=== PATIENT | female | born 1965 | race Hispanic/Latino ===

== ENCOUNTER 2018-04-13 17:28 | Emergency (ER) | payer SELFPAY ==
[2018-04-13 18:03] VITALS: BP 127/98
[2018-04-13] MEDS ORDERED: MOTRIN PO ONE (22:23)
--- NOTE | 2018-04-13 22:24 | Emergency Department Report ---
ED Lower Extremity HPI - General Chief Complaint: Extremity Problem,Nontraumatic Stated Complaint: LT KNEE PAIN Time Seen by Provider: 04/13/18 22:22 Source: patient Mode of arrival: Wheelchair Limitations: Physical Limitation - History of Present Illness Initial Comments: Patient is a 52-year-old white female who presents for left knee pain states unable bear weight for past month however patient ambulated into ED today left knee pain is 6/10 patient denies fall injury or trauma states initial episode about 6 months ago MD Complaint: knee injury, other (6 months acute on chronic pain) Injury: Knee: Left Type of Injury: unknown Place: home Severity: moderate Severity scale (0 -10): 5 Improves With: NSAID Worsens With: weight bearing, movement, palpation Context: other ([place]) Associated Symptoms: snap/pop sensation, able to partially bear weight. denies : swelling, numbness, tingling - Related Data Previous Rx's Medication Instructions Recorded Last Taken Type Cyclobenzaprine [Flexeril] 10 mg PO BID PRN #20 tablet 04/14/18 Unknown Rx Menthol/Camphor [[place] 1 applic TP TID PRN #1 tube 04/14/18 Unknown Rx Ointment] Naproxen 500 mg PO BID #30 tablet 04/14/18 Unknown Rx Allergies Allergy/AdvReac Type Severity Reaction Status Date / Time No Known Allergies Allergy Unverified 04/13/18 18:03 ED Review of Systems ROS: Stated complaint: LT KNEE PAIN Other details as noted in HPI Constitutional: denies: chills, fever Eyes: denies: eye pain, eye discharge, vision change ENT: denies: ear pain, throat pain Respiratory: denies: cough, shortness of breath, wheezing Cardiovascular: denies: chest pain, palpitations Endocrine: no symptoms reported Gastrointestinal: denies: abdominal pain, nausea, diarrhea Genitourinary: denies: urgency, dysuria, discharge Musculoskeletal: joint swelling, myalgia. denies: back pain, arthralgia Skin: denies: rash, lesions Neurological: denies: headache, weakness, paresthesias Psychiatric: denies: anxiety, depression Hematological/Lymphatic: denies: easy bleeding, easy bruising ED Past Medical Hx - Past Medical History Previous Medical History?: Yes - Surgical History Past Surgical History?: Yes Additional Surgical History: finger surgery - Social History Smoking Status: Current Every Day Smoker Substance Use Type: None - Medications Home Medications: Home Medications Medication Instructions Recorded Confirmed Last Taken Type Cyclobenzaprine [Flexeril] 10 mg PO BID PRN #20 tablet 04/14/18 Unknown Rx Menthol/Camphor [[place] 1 applic TP TID PRN #1 tube 04/14/18 Unknown Rx Ointment] Naproxen 500 mg PO BID #30 tablet 04/14/18 Unknown Rx ED Physical Exam - General Limitations: Physical Limitation General appearance: alert, in no apparent distress - Head Head exam: Present: atraumatic, normocephalic - Eye Eye exam: Present: normal appearance - ENT ENT exam: Present: mucous membranes moist - Neck Neck exam: Present: normal inspection - Respiratory Respiratory exam: Present: normal lung sounds bilaterally - Cardiovascular Cardiovascular Exam: Present: regular rate, normal rhythm. Absent: systolic murmur, diastolic murmur, rubs, gallop - GI/Abdominal GI/Abdominal exam: Present: soft, normal bowel sounds - Rectal Rectal exam: Present: deferred - Extremities Exam Extremities exam: Present: normal inspection, full ROM, normal capillary refill. Absent: tenderness, pedal edema, joint swelling, calf tenderness - Back Exam Back exam: Present: normal inspection - Neurological Exam Neurological exam: Present: alert, oriented X3 - Psychiatric Psychiatric exam: Present: normal affect, normal mood - Skin Skin exam: Present: warm, dry, intact, normal color. Absent: rash ED Course Vital Signs 04/13/18 17:59 Temperature 99.3 F Pulse Rate 91 H Respiratory 20 Rate Blood Pressure 127/98 O2 Sat by Pulse 100 Oximetry ED Lower Extremity MDM - Radiology Data Radiology results: report reviewed, image reviewed No fracture no soft tissue abnormality - Medical Decision Making X-ray negative for fracture no soft tissue abnormalities This is a knee strain plan Nitish wrap NSAIDs muscle relaxants knee exercises and follow with PCP in2 to 3 days patient verbalizes understanding and agreement was signed producing a home in stable condition at this time patient will test ambulatory with a steady Critical care attestation.: If time is entered above; I have spent that time in minutes in the direct care of this critically ill patient, excluding procedure time. ED Disposition Clinical Impression: Knee strain Qualifiers: Encounter type: initial encounter Laterality: left Qualified Code(s): S86.912A - Strain of unspecified muscle(s) and tendon(s) at lower leg level, left leg, initial encounter Disposition: TO HOME OR SELFCARE Is pt being admited?: No Does the pt Need Aspirin: No Condition: Good Instructions: Knee Pain (ED), Knee Exercises (GEN) Prescriptions: Cyclobenzaprine [Flexeril] 10 mg PO BID PRN #20 tablet PRN Reason: Muscle Spasm Menthol/Camphor [[place] Ointment] 1 applic TP TID PRN #1 tube PRN Reason: pain Naproxen 500 mg PO BID #30 tablet Referrals: [facility] [Outside] - 3-5 Days Forms: Work/School Release Form(ED) Time of Disposition: 00:41
--- NOTE | 2018-04-14 00:08 | XRay Report ---
FINAL REPORT EXAM: XR KNEE 3V LT HISTORY: left knee pain TECHNIQUE: Three views of the left knee were submitted. FINDINGS: All 3 compartments appear normal. There is no evidence of fracture or joint effusion. The soft tissues otherwise well maintained. IMPRESSION: Within normal limits.
== END 2018-04-14 00:57 | disposition home or self-care (01) ==
LOC: ED 17:28
DX: S86.912A Strain of unspecified muscle(s) and tendon(s) at lower leg level, left leg, initial encounter (principal); F17.200 Nicotine dependence, unspecified, uncomplicated; X58.XXXA Exposure to other specified factors, initial encounter; Y93.89 Activity, other specified; Y99.8 Other external cause status; Y92.009 Unspecified place in unspecified non-institutional (private) residence as the place of occurrence of the external cause
CPT/HCPCS: 99284

== ENCOUNTER 2018-04-14 10:57 | Emergency (ER) | payer SELFPAY ==
[2018-04-14 12:41] VITALS: BP 117/78
--- NOTE | 2018-04-14 15:11 | Emergency Department Report ---
Minor Respiratory - HPI Chief Complaint: Earache Stated Complaint: POSS EAR INFECTION Time Seen by Provider: 04/14/18 14:29 Duration: 3 Days (reports cough and wheezing 3 days and right ear drainage 1 day.) Pain Location: Ear (3 chest 10) Severity: mild (3/10) Minor Respiratory: Yes Able to Tolerate Fluids, Yes Ear Pain (3/10 and drainage from right ear), Yes Cough (and wheezing), No Rhinorrhea, No Sore Throat, No Sick Contacts, No Hemoptysis, No Chest Pain, No Shortness of Breath, No Fever Other History: This is a 52-year-old female here reports that she has drainage from her right ear last night. She just woke up this morning and she has greenish drainage. Pain is 3 of 10. Denies any trauma. Medication taken. Patient was here last night for knee pain and he gave her prescription for management and she is back today for right ear pain. Denies any nausea vomiting , fever or chills. Denies any chest pain or shortness of breath. Patient also complained of cough and wheeze then she says started 3 days ago and no medication taken. ED Review of Systems ROS: Stated complaint: POSS EAR INFECTION Other details as noted in HPI Constitutional: denies: chills, fever Eyes: denies: eye discharge, vision change ENT: ear pain (right ear pain and drainage). denies: throat pain, dental pain, hearing loss, congestion Respiratory: cough, wheezing. denies: shortness of breath, SOB with exertion, SOB at rest, stridor Cardiovascular: denies: chest pain, palpitations Gastrointestinal: denies: abdominal pain, nausea, diarrhea Musculoskeletal: denies: back pain, joint swelling, arthralgia Skin: denies: rash, lesions Neurological: denies: headache Psychiatric: anxiety ED Past Medical Hx - Past Medical History Previous Medical History?: Yes Hx Arthritis: Yes - Surgical History Past Surgical History?: Yes Additional Surgical History: finger surgery - Family History Family history: hypertension - Social History Smoking Status: Current Every Day Smoker Substance Use Type: None - Medications Home Medications: Home Medications Medication Instructions Recorded Confirmed Last Taken Type ALBUTEROL Inhaler [ProAir HFA 2 puff IH Q6H PRN #1 inhalation 04/14/18 Unknown Rx Inhaler] Amoxicillin/K Clav Tab [Augmentin 1 tab PO Q12HR #20 tab 04/14/18 Unknown Rx 875MG TAB] Cyclobenzaprine [Flexeril] 10 mg PO BID PRN #20 tablet 04/14/18 Unknown Rx Menthol/Camphor [[place] [employer] 1 applic TP TID PRN #1 tube 04/14/18 Unknown Rx Ointment] Naproxen 500 mg PO BID #30 tablet 04/14/18 Unknown Rx Neomy/Polymyx B/Hc (Otic) Soln 4 drops OTIC TID 1 Days #1 bottle 04/14/18 Unknown Rx [Cortisporin (Otic) Soln] predniSONE [Deltasone] 50 mg PO QDAY 5 Days #5 tab 04/14/18 Unknown Rx Minor Respiratory Exam - Exam General: Vital signs noted. No distress. Alert and acting appropriately. This is a 52-year-old female well-nourished well-developed in no acute distress. HEENT: Yes Moist Mucous Membranes, No Pharyngeal Erythema, No Pharyngeal Exudates, No Rhinorrhea, No Conjuctival Injection, No Frontal Tenderness, No Maxillary Tenderness Ear: Both EAC Pain (right EAC tender with scant drainage noted.), Both EAC Discharge, Neither TM Bulge (lateral TM congested without erythema), Neither TM Erythema Neck: Yes Supple (full range of motion), No Adenopathy Lungs: Yes Wheezes (scattered to bilateral upper lung bella), Yes Cough (dry cough), No Ronchi, No Stridor, No Labored Respirations, No Retractions, No Use of Accessory Muscles, No Other Abnormal Lung Sounds Heart: Yes Regular, No Murmur Abdomen: Yes Normal Bowel Sounds (in all quadrants), No Tenderness (nontender to palpate in all quadrants), No Peritoneal Signs Skin: No Rash, No Edema Neurologic: Alert and oriented, no deficits. Musculoskeletal: Unremarkable. ED Course Vital Signs 04/14/18 12:38 Temperature 97.9 F Pulse Rate 87 Respiratory 16 Rate Blood Pressure 117/78 O2 Sat by Pulse 96 Oximetry - Reevaluation(s) Reevaluation #1: 04/14/18 16:15 Patient given albuterol 5 mg nebulizer treatment and prednisone 60 mg by mouth for asthma. Up and reevaluation her lung sounds clear. ED Medical Decision Making - Medical Decision Making This is a 52-year-old female here reports that she is having right ear pain and drainage and also cough and cold symptoms and wheezing. I saw and examined patient and physical findings for scattered wheezes and upper lung field with dry cough. No use of accessory muscles. Patient with bilateral TM congested without any erythema and right EAC with scant drainage and tender to palpate the right tragus. Vital signs are stable she is afebrile. Patient was given albuterol 5 mg nebulizer and her wheezing had subsided and Deltasone 60 mg by mouth for her mild acute bronchitis. Patient will be started on Cortisporin Otic for right otitis externa and Augmentin for bronchitis. I explained diagnosis and treatment plan the patient was understanding. She says she is feeling better and she does not have a primary care so she will follow up at [facility] in 3 days or return to emergency room if her symptoms worsens. Prescription for Corticosporin Otic, albuterol inhaler, prednisone and Augmentin Critical care attestation.: If time is entered above; I have spent that time in minutes in the direct care of this critically ill patient, excluding procedure time. ED Disposition Clinical Impression: Bronchitis, Cough Otitis externa Qualifiers: Otitis externa type: unspecified type Chronicity: acute Laterality: right Qualified Code(s): H60.501 - Unspecified acute noninfective otitis externa, right ear Disposition: [id number] TO HOME OR SELFCARE Is pt being admited?: No Does the pt Need Aspirin: No Condition: Stable Instructions: Acute Bronchitis (ED), Chronic Bronchitis (ED) Additional Instructions: Please follow up with [facility] in 3 days. If he condition worsens return to the emergency room ANA Take medication as prescribed Prescriptions: ALBUTEROL Inhaler [ProAir HFA Inhaler] 2 puff IH Q6H PRN #1 inhalation PRN Reason: Shortness Of Breath Amoxicillin/K Clav Tab [Augmentin 875MG TAB] 1 tab PO Q12HR #20 tab Neomy/Polymyx B/Hc (Otic) Soln [Cortisporin (Otic) Soln] 4 drops OTIC TID 1 Days #1 bottle predniSONE [Deltasone] 50 mg PO QDAY 5 Days #5 tab Referrals: [facility] [Outside] - 04/17/18 Forms: Work/School Release Form(ED)
[2018-04-14] MEDS ORDERED: DELTASONE PO ONE (15:49)
[2018-04-14] MEDS ORDERED: PROVENTIL IH ONE (15:49)
== END 2018-04-14 17:28 | disposition home or self-care (01) ==
LOC: ED 10:57
DX: J40 Bronchitis, not specified as acute or chronic (principal); H60.501 Unspecified acute noninfective otitis externa, right ear; M19.90 Unspecified osteoarthritis, unspecified site; F17.200 Nicotine dependence, unspecified, uncomplicated
CPT/HCPCS: 94640; 99283; J7512